=== PATIENT | male | born 1990 | race Caucasian/White ===

== ENCOUNTER → 2017-01-15 | Outpatient (CLI) | payer BC ==
--- NOTE | 2017-01-15 11:39 | DI ---
PA /LATERAL CHEST X-RAY, 01/15/2017 10:50 AM : Clinical History: Shortness of breath. Previous Exam: None at this facility. There is no acute soft tissue or bony abnormality. Heart size is normal. Lungs are clear. Mediastinal structures are normal. There is a calcified 6 mm granuloma in the lateral aspect of the right wwe wrestler ior sulcus. Reading: Normal chest x-ray. Old granulomatous disease.
== END ==
LOC: MOB RAD 10:57
PROVIDERS: ATTEND Physician Assistant
DX: R06.02 Shortness of breath (principal)
CPT/HCPCS: 71020